=== PATIENT | male | born 1975 | race Caucasian/White ===

== ENCOUNTER 2024-11-29 08:50 | Outpatient (CLI) | payer BC ==
--- NOTE | 2024-11-29 10:36 | RADIOLOGY REPORT ---
Exam: US ULTRASOUND HEAD NECK Date: 11/29/2024 08:59 AM Clinical History: LOCALIZED SWELLING, MASS AND LUMP, NECK Comparison: None Technique: Targeted sonographic evaluation of the soft tissues of the right neck was obtained utilizing grayscale and color Doppler imaging. Findings/Impression: Abnormal mass in the right neck measuring 5.0 x 3.0 x 4.6 cm which may represent an abnormal lymph node. Recommend further evaluation with MRI or CT soft tissue neck and tissue sampling.
== END 2024-11-29 23:59 | disposition home or self-care (01) ==
LOC: RAD 08:50
PROVIDERS: ATTEND Nurse Practitioner Family
DX: R22.1 Localized swelling, mass and lump, neck (principal)
CPT/HCPCS: 76536